=== PATIENT | male | born 1990 | race African-American/Black ===

== ENCOUNTER 2023-01-24 12:58 | Emergency (ER) | payer MEDICAID ==
[~2023-01-24] VITALS: Ht 170.2 cm; Wt 61.0 kg
[2023-01-24 13:20] VITALS: O2SAT 100
[2023-01-24] MEDS ORDERED: IBUPROFEN 600MG TABLET PO ONE (14:30)
[2023-01-24] MEDS ORDERED: IBUP-2029 MT (15:40)
[2023-01-24] MEDS ORDERED: MUPI15CR11 TP (15:40)
[2023-01-24 15:41] VITALS: BP 127/80; PULSE 100; RESP 16
== END 2023-01-24 16:11 | disposition home or self-care (01) ==
LOC: ER 12:58
DX: S80.02XA Contusion of left knee, initial encounter (principal); S80.212A Abrasion, left knee, initial encounter; X58.XXXA Exposure to other specified factors, initial encounter; Y93.89 Activity, other specified; Y92.89 Other specified places as the place of occurrence of the external cause; Y99.8 Other external cause status
CPT/HCPCS: 73560; 99283